=== PATIENT | male | born 1980 | race African-American/Black ===

== ENCOUNTER 2018-01-01 19:06 | Emergency (ER) | payer OTHER ==
[~2018-01-01] VITALS: Ht 185.4 cm; Wt 81.6 kg
--- NOTE | 2018-01-01 19:48 | ED GENERAL ADULT ---
History of Present Illness General Chief Complaint: General Adult Stated Complaint: POSSIBLE UTI Source: patient Exam Limitations: no limitations Vital Signs & Intake/Output Vital Signs & Intake/Output Vital Signs Date Time Temp Pulse Resp B/P B/P Pulse O2 O2 Flow FiO2 Mean Ox Delivery Rate 01/01 1954 98.7 71 18 106/79 99 Room Air 01/01 1915 98.8 68 18 104/69 96 Room Air 01/018 98 Allergies Coded Allergies: No Known Allergies (12/21/17) Triage Note: PT STATES HE WAS HOLDING HIS URINE FOR A LONG TIME AND FEELS LIKE HE MAY HAVE A UTI. Triage Nurses Notes Reviewed? yes Onset: Abrupt Duration: minute(s): Timing: constant HPI: 37-year-old male with a history of atrial septal defect, anxiety, depression presenting for evaluation for possible UTI. Patient states that him and his significant other were in [place] yesterday, were unable to find a restroom for a long period of time, they held the urine for a prolonged period of time. This morning his significant other developed urinary symptoms with dysuria and suprapubic discomfort. She was seen and evaluated in the emergency department and her urine was concerning for UTI. She was placed on antibiotics. He requested to be checked in and have a urine sample checked for UTI as he is concerned that he also held his urine for a prolonged period of time. He denies any urinary symptoms at this time, no dysuria, urinary urgency/frequency, hematuria. (Naima Lambert) Past History Travel History Traveled to [place] past 21 day No Medical History Any Pertinent Medical History? see below for history Neurological: NONE EENT: NONE Cardiovascular: ATRIAL SEPTAL DEFECT SX Respiratory: NONE Gastrointestinal: NONE Hepatic: NONE Renal: NONE Musculoskeletal: NONE Psychiatric: anxiety, depression Endocrine: NONE Surgical History Surgical History: non-contributory Psychosocial History Who do you live with Significant Other What is your primary language Bulgarian Tobacco Use: Never used ETOH Use: occasional use Illicit Drug Use: denies illicit drug use Family History Hx Contributory? No (Naima Lambert) Review of Systems Review of Systems Constitutional: Reports: no symptoms. EENTM: Reports: no symptoms. Respiratory: Reports: no symptoms. Cardiovascular: Reports: no symptoms. GI: Reports: no symptoms. Genitourinary: Reports: no symptoms. Musculoskeletal: Reports: no symptoms. Skin: Reports: no symptoms. Neurological/Psychological: Reports: no symptoms. Hematologic/Endocrine: Reports: no symptoms. Immunologic/Allergic: Reports: no symptoms. All Other Systems: Reviewed and Negative (Naima Lambert) Physical Exam Physical Exam General Appearance: well developed/nourished, no apparent distress, alert, awake Comments: Gen.: Well-nourished, well-developed, no acute distress. Head: Normocephalic, atraumatic. Eyes: Normal inspection bilaterally Ears: Normal inspection bilaterally Nose: Normal inspection Neck: Normal inspection Lungs: clear to auscultation bilaterally, normnal breath sounds Heart: regular rate and rhythm Abdomen: soft and non-tender Back: No CVA tenderness Extremities: Normal inspection Neurologic: alert and oriented x3, steady gait Skin: warm and dry Psychiatric: Normal mood and affect, no apparent delusions or hallucinations, behavior appropriate Core Measures ACS in differential dx? No CVA/TIA Diagnosis: No Sepsis Present: No Sepsis Focused Exam Completed? No (Naima Lambert) Progress Differential Diagnoses I considered the following diagnoses in my evaluation of the patient: [UTI versus pyelonephritis] Plan of Care: Orders Procedure Date/time Status URINALYSIS 01/02 1912 Complete Laboratory Tests 01/01/181910: Urine Color YEL, Urine Clarity CLEAR, Urine pH 6.0, Ur Specific [place] 1.025, Urine Protein NEG, Urine Ketones NEG, Urine Nitrite NEG, Urine Bilirubin NEG, Urine Urobilinogen 0.2, Ur Leukocyte Esterase NEG, Ur Microscopic EXAM NOT REQUIRED, Urine Hemoglobin NEG, Urine Glucose NEG UA was not concerning for infection. Cleared for discharge. Initial ED EKG: none (Naima Lambert) Departure Departure Disposition: HOME OR SELF CARE Condition: Stable Clinical Impression Primary Impression: Encounter for medical assessment Referrals: Patient Has No Primary Care Dr (PCP/Family) Additional Instructions: Return to the emergency department for any new or worsening symptoms. Departure Forms: Customer Survey General Discharge Information (Naima Lambert) PA/TAR AND [employer]MONIA PUMP OPERATOR Co-Sign Statement Statement: ED Attending supervision documentation- [] I saw and evaluated the patient. I have also reviewed all the pertinent lab results and diagnostic results. I agree with the findings and the plan of care as documented in the PA's/TAR AND AMMONIA PUMP OPERATOR's documentation. [x] I have reviewed the ED Record and agree with the PA's/TAR AND AMMONIA PUMP OPERATOR's documentation. [] Additions or exceptions (if any) to the PAs/TAR AND AMMONIA PUMP OPERATOR's note and plan are summarized below: [] (Jayden Mayen DO) Critical Care Note Critical Care Note Critical Care Time: non-applicable (Jaspreet WATERS,Naima)
[2018-01-01 19:54] VITALS: BP 106/79
== END 2018-01-01 19:55 ==
LOC: ERH 19:06
DX: Z71.1 Person with feared health complaint in whom no diagnosis is made (principal)
CPT/HCPCS: 81003